=== PATIENT | female | born 1990 | race Caucasian/White ===

== ENCOUNTER 2022-01-22 05:28 | Emergency (ER) | payer OTHER, SELFPAY ==
[2022-01-22 05:49] VITALS: BP 108/91; PULSE 106; RESP 22; TEMP 36.6; O2SAT 97; BMI 31.3
[2022-01-22] MEDS: GI COCKTAIL (VISC LIDO/ANTACID) 30 ML PO (06:54)
[2022-01-22 06:56] LABS: Basophils Absolute Auto 0.03 K/uL (0.00-0.30); Basophils Percent Auto 0.4 % (0.0-3.0); Eosinophils Absolute Auto 0.06 K/uL (0.00-0.50); Eosinophils Percent Auto 0.7 % (0.0-7.0); Hematocrit 43.9 % (33.0-51.0); Hemoglobin* 14.9 gm/dL (12.0-16.0); Immature Granulocytes Abs Auto 0.01 K/uL (0.00-0.30); Lymphocytes Percent Auto 25.7 % (20-44); Mean Corpuscular HGB Conc 34 gm/dL (32-36); Mean Corpuscular Hemoglobin 30 pg (26-34); Mean Corpuscular Volume 88 fL (80-100); Monocytes Percent Auto 5.4 % (0.0-11.0); Neutrophils Absolute Auto 5.79 K/uL (1.7-7.0); Neutrophils Percent Auto 67.7 % (42.0-72.0); Platelet Count* 352 K/uL (140-440); RDW Coefficient of Variation % 12.1 % (11.5-15.5); White Blood Count* 8.55 K/uL (4.50-11.00)
[2022-01-22 06:58] LABS: Slide Review Reflex No
--- NOTE | 2022-01-22 06:59 | ED_ITS ---
HPI - Chest Pain General Chief Complaint: Chest Pain Stated Complaint: Panic attack, shortness of breath, chest heaviness Time Seen by Provider: 01/22/22 06:05 Source: patient Mode of arrival: ambulatory Limitations: no limitations History of Present Illness HPI narrative: 30-year-old female with a notable prior history of gastric reflux that presents to the emergency department with epigastric pain, gnawing sensation it started about 9:00 p.m.. She thought that this was her acid reflux, as she has had similar symptoms in the past. She went to bed, symptoms did not improve, worsen with laying down. Because of this, she tried taking some famotidine and eating a couple of crackers with no significant improvement. It was difficult to sleep, causing her to worry. With this, she started having a feeling that it was difficult to catch her breath and a feeling like there was a slight amount of weight like a CT or a small child on her chest. There was not a specific chest pain it did not radiate just a mild heaviness. It was not accompanied by shortness of breath, cough or other worrisome symptoms. She has no prior significant history of coronary artery disease. She has been diagnosed with Mobitz type 2 in the past, sounds like a single episode per her description. She thought potentially her symptoms could be from that. There was no dizziness, lightheadedness or syncope. Symptoms started at about 4:00 a.m., she called her mother for assistance and came to the emergency department. Symptoms had been present for about 90 minutes at the time of ED arrival. She did not try any other interventions besides the gastric reflux interventions at home prior to coming to the ED. She also states that she started taking phentermine, which she has done in the past as well. She does notice that over the last couple days [place] than usual and has not been eating as much. She denies alcohol ingestion, acidic foods. She wonders if this may be contributing to her symptoms as well. Past medical history notable for acid reflux, obesity. Allergies are bupropion. Does have a history of some anxiety. Socially she is nonsmoker, no substance ingestion. No pertinent travel. Family history is negative for premature coronary artery disease. ROS is notable for the generalized, chest and GI symptoms as above Related Data Home Medications Medication Instructions Recorded Confirmed famotidine 20 mg tablet (Acid 20 mg PO DAILY PRN 10/28/22 10/28/22 Controller) omeprazole 20 mg capsule,delayed 20 mg PO DAILY PRN 01/22/22 01/22/22 release phentermine 37.5 mg tablet 37.5 mg PO .COMPLEX 01/22/22 01/22/22 Previous Rx's Medication Instructions Recorded hydroxyzine HCl 25 mg tablet 25 mg PO TID PRN anxiety #20 tabs 01/22/22 Allergies Allergy/AdvReac Type Severity Reaction Status Date / Time bupropion [From Wellbutrin] Allergy Mild heart felt Verified 01/22/22 05:55 connie [facility] Medical History (Updated 01/22/22 @ 07:39 by Vera Link MD) Chronic pain Human papilloma virus Kidney stone Wenckebach second degree AV block Social History Smoking Status: Never smoker Do you use any of these nicotine containing products: None Second hand tobacco smoke exposure: No How often do you have a drink containing alcohol: never AUDIT-C Alcohol total score: 0 Non-prescribed substance use: denies use service: No Exam Const Vital Signs, click to edit/add: Vital Signs - 24 hr 01/22/22 05:49 Temperature 97.9 F Pulse Rate [Left Pulse Oximeter] 106 H Respiratory Rate 22 Blood Pressure [Right Upper Arm] 108/91 H Pulse Oximetry 97 Oxygen Delivery Method Room Air Documenting provider has reviewed patient's vital signs: yes Common normals: no apparent distress General appearance: cooperative, comfortable and well kempt [facility] Common normals: normocephalic Head and scalp: normocephalic Mouth: oral and palatal mucosa normal Throat: posterior oropharynx normal Eye Common normals: conjunctivae normal and no scleral icterus General eye: normal appearance of both eyes Conjunctiva: conjunctiva(e) normal Other: Normal visual tracking Neck & C-Spine Common normals: full ROM, no lymphadenopathy and thyroid normal Thyroid: thyroid normal Resp Common normals: normal respiratory effort, no retractions, no use of accessory muscles and clear to auscultation bilaterally Auscultation: clear to auscultation bilaterally Cardio Common normals: regular rate, regular rhythm, S1 normal heart sound, S2 normal heart sound, no murmurs and peripheral pulses 2+ throughout Rate: regular rate Rhythm: regular rhythm Heart sounds: S1 normal and S2 normal Peripheral pulses: pulses 2+ throughout GI Common normals: Normal to inspection, nondistended, normoactive bowel sounds present, soft to palpation, non-tender, no hepatosplenomegaly and no masses Palpation: soft and no hepatosplenomegaly Extremity Common normals: normal to inspection and no pedal edema Neuro Speech: speech normal Gait (neuro): normal gait Motor exam: no tremor noted and no movement abnormalities noted Psych Common normals: thought process normal Appearance: well kempt Attitude: engaged Thought process: normal thought process Thought content: normal thought content Insight: insight good Judgement: judgment good Skin Common normals: no rashes or lesions noted General skin exam: no rashes or lesions noted Course Vital Signs Vital signs: Initial Vital Signs Temperature 97.9 F 01/22/22 05:49 Temperature Source Temporal Artery Scan 01/22/22 05:49 Pulse Rate 106 H 01/22/22 05:49 Respiratory Rate 22 01/22/22 05:49 Blood Pressure 108/91 H 01/22/22 05:49 Blood Pressure Mean 96 01/22/22 05:49 Blood Pressure Position Sitting 01/22/22 05:49 Pulse Oximetry 97 01/22/22 05:49 Oxygen Delivery Method 01/22/22 05:49 Vital Signs Temperature 97.9 F 01/22/22 05:49 Pulse Rate 106 H 01/22/22 05:49 Respiratory Rate 22 01/22/22 05:49 Blood Pressure 108/91 H 01/22/22 05:49 Pulse Oximetry 97 01/22/22 05:49 Oxygen Delivery Method 01/22/22 05:49 Temperature 97.9 F 01/22/22 05:49 Pulse Rate 106 H 01/22/22 05:49 Respiratory Rate 22 01/22/22 05:49 Blood Pressure 108/91 H 01/22/22 05:49 Pulse Oximetry 97 01/22/22 05:49 Oxygen Delivery Method 01/22/22 05:49 MDM - Chest Pain MDM Narrative Medical decision making narrative: Differential diagnosis including pulmonary embolism, panic attack, GERD, acute coronary syndrome. Initial EKG is performed showing normal sinus rhythm with no significant ST or T-wave abnormalities, reassuring. Patient is placed on a quality assurance monitor final, no signs of arrhythmia are noted. Heart rate improved to below 90 with watchful waiting and no other interventions. She has already taken famotidine, I recommended a trial of a GI cocktail which could be both diagnostic and therapeutic. Am suspicious that the phentermine is worsening some anxiety and we did briefly discuss this. Would recommend a repeat troponin after 90 minutes and if this is normal as well, patient should be able to discharge with additional outpatient workup and medical decision making regarding continuing use of phentermine. Updates 730: GI cocktail did improve symptoms. Initial normal labs reviewed with patient. Heart rate steadily in the low 90s, not uncommon with phentermine. No shortness of breath or chest pain has returned. We discuss risks and benefits of serial troponins, she agrees that this does not seem necessary at this time and I agree. We discussed anxiety, we discuss Vistaril p.r.n.. She is agreeable to a prescription for this to have on hand at home. She will need to follow up with her primary care provider to discuss whether continuing on the phentermine is a good choice for her as it sounds as though it is time to transition off of this anyway as it is meant to be used for limited time periods. Alarm symptoms reviewed as indications to come back to the ED. etiology of chest pain is reflux combined with anxiety. Lab Data Attestation: I reviewed the patient's lab results. Labs: Lab Results 01/22/22 01/22/22 01/22/22 Range/Units 06:35 06:35 06:35 WBC 8.55 (4.50-11.00) K/uL RBC 5.00 (4.00-5.20) m/uL Hgb 14.9 (12.0-16.0) gm/dL Hct 43.9 (33.0-51.0) % MCV 88 (80-100) fL MCH 30 (26-34) pg MCHC 34 (32-36) gm/dL RDW Coeff of Isaiah 12.1 (11.5-15.5) % Plt Count 352 (140-440) K/uL Neut % (Auto) 67.7 (42.0-72.0) % Lymph % (Auto) 25.7 (20-44) % Blackford % (Auto) 5.4 (0.0-11.0) % Eos % (Auto) 0.7 (0.0-7.0) % Baso % (Auto) 0.4 (0.0-3.0) % Neut # (Auto) 5.79 (1.7-7.0) K/uL Lymph # (Auto) 2.20 (0.90-2.90) K/uL Blackford # (Auto) 0.50 (0.00-0.90) K/UL Eos # (Auto) 0.06 (0.00-0.50) K/uL Baso # (Auto) 0.03 (0.00-0.30) K/uL Abs Immat Gran (auto) 0.01 (0.00-0.30) K/uL Sodium 139 (135-149) mmol/L Potassium 4.0 (3.6-5.1) mmol/L Chloride 105 (96-114) mmol/L Carbon Dioxide 25 (20-32) mmol/L BUN 11 (5-24) mg/dL Creatinine 0.7 (0.5-1.5) mg/dL Estimated Creat Clear 112.20 Estimated GFR 118 ml/min Glucose 104 (60-115) mg/dL Calcium 9.7 (8.4-10.6) mg/dL NT-Pro-B Natriuret Pep < 11 (0-125) PG/mL POC Troponin I 0.00 L (0.01-0.04) ng/ml ECG Data Attestation: I personally reviewed and interpreted this ECG as follows: Prior ECG tracings: not available for review Interpretation: Normal sinus rhythm, normal axis with rate of 100. No significant ST or T-wave abnormalities, good R-wave progression. Discharge Plan Discharge Clinical Impression: Atypical chest pain Patient Disposition: Home w/ Parent or Adult Condition: Improved Instructions: Noncardiac Chest Pain (ED) Additional Instructions: I agree that your upper stomach symptoms seem related to gastric reflux, especially since they did improve on the medications given here in the emergency room. Your EKG, blood work the findings from the heart monitors do not show anything dangerous, this is reassuring. I do not think you are having a heart attack or signs of other dangerous event today. I do Think that there is an element of anxiety, follow your phentermine medication plays into this may be worth exploring. I am giving a prescription for hydroxyzine, also known is Vistaril to use as needed for anxiety. I recommend staying active and avoiding alcohol as well. Gentle daily exercise, undistracted is recommended as well to help manage your moods. Keep a symptom diary and follow up with her primary care doctor in 1-2 weeks to further discuss. If you are still having a lot of chest symptoms, further workup on your heart may be helpful. Discussion of transitioning off of your phentermine will have to be done sometime soon anyway. Come back to the emergency department if her symptoms are severe. Activity Level: No Restrictions Discharge Diet: Regular Prescriptions: New hydroxyzine HCl 25 mg tablet 25 mg PO TID PRN (Reason: anxiety) Qty: 20 0RF No Action phentermine 37.5 mg tablet 37.5 mg PO .COMPLEX Rx Instructions: 37.5 mg orally once daily before a meal; omeprazole 20 mg capsule,delayed release(DR/EC) 20 mg PO DAILY PRN famotidine [Acid Controller] 20 mg tablet 20 mg PO DAILY PRN Follow Up/Referrals: Baylee Galarza, PAAnant [Primary Care Provider] - Stand Alone Forms: imageloop Info Instructions
[2022-01-22 07:15] LABS: Chloride* 105 mmol/L (96-114); Sodium* 139 mmol/L (135-149)
[2022-01-22 07:18] LABS: Creatinine* 0.7 mg/dL (0.5-1.5); Estimated Glomerular Filt Rate 118 ml/min
[2022-01-22 07:19] LABS: Blood Urea Nitrogen* 11 mg/dL (5-24); Calcium* 9.7 mg/dL (8.4-10.6); Carbon Dioxide* 25 mmol/L (20-32); Glucose* 104 mg/dL (60-115)
[2022-01-22 07:32] LABS: NT Pro B Type NatriureticPept* < 11 PG/mL (0-125)
== END 2022-01-22 07:50 | disposition home or self-care (01) ==
PROVIDERS: Emergency Provider Family Medicine; PCP Physician Assistant Medical
DX: R07.9 Chest pain, unspecified (principal)
CPT/HCPCS: 36415; 80048; 83880; 85025; 93005; 99283; 99284; A9270